=== PATIENT | female | born 1980 | race American Indian/Alaskan Native ===

== ENCOUNTER 2016-11-20 17:18 | Emergency (ER) | payer SELFPAY ==
[2016-11-20 18:06] VITALS: BP 122/76
[2016-11-20] MEDS ORDERED: BENADRYL PO ONE (20:03)
[2016-11-20] MEDS ORDERED: MORPHINE IM ONE (20:03)
[2016-11-20] MEDS ORDERED: NACL 0.9% IR ONE (20:05)
[2016-11-20] MEDS ORDERED: XYLOCAINE 1% 20 mL INFILTRATI ONE (20:22)
--- NOTE | 2016-11-21 06:56 | Emergency Department Report ---
Entered by ZANA KHAN, acting as scribe for ALFONSO CORDON PA. - General Chief complaint: Skin/Abscess/Foreign Body Stated complaint: BOILS/LEGS Time Seen by Provider: 11/20/16 19:42 Source: patient Mode of arrival: Ambulatory Limitations: No Limitations - History of Present Illness Initial comments: 36 y/o female with no significant PMHx presents to the ED c/o an abscess on left inner thigh that began 4 days ago. Patient states the abscess has gradually increased in size since onset. Rates pain a 10/10 in severity, which she describes as aching in quality. Aggravated with palpation and alleviated with nothing. Denies fever, chills, nausea, vomiting, and drainage. Notes Hx of similar abscess, which were subsequently drained. Denies taking any new or recent medication at home. NKDA. ELIZABETH complaint: abscess/boil (left inner thigh) Onset/Timin -: days(s) Tetanus Up to Date: unsure Location: LLE (left inner thigh) Severity: severe Severity scale (0 -10): 10 Quality: burning Consistency: constant Improves with: none Worsens with: palpation Context: other (Hx of abscesses) Associated symptoms: denies other symptoms Treatments Prior to Arrival: none - Related Data Previous Rx's Medication Instructions Recorded Last Taken Type Clindamycin [Clindamycin CAP] 300 mg PO Q8H #21 cap 12/01/14 Unknown Rx oxyCODONE /ACETAMINOPHEN [Percocet 1 tab PO Q6HR PRN #20 tablet 12/01/14 Unknown Rx 5/325 mg] Acetaminophen/Codeine [Tylenol #3] 1 tab PO Q6H PRN #15 tab 02/19/15 Unknown Rx HYDROcodone/APAP 5-325 [[place] 1 each PO Q6HR PRN #15 tablet 11/20/16 Unknown Rx 5-325 mg TAB] Ibuprofen [Motrin 600 MG tab] 600 mg PO Q8H PRN #50 tablet 11/20/16 Unknown Rx Sulfamethoxazole/Trimethoprim 1 each PO BID #14 tablet 11/20/16 Unknown Rx [Bactrim DS TAB] Allergies Allergy/AdvReac Type Severity Reaction Status Date / Time No Known Allergies Allergy Verified 11/29/14 18:48 Abscess Boil HPI - HPI Chief Complaint: Skin/Abscess/Foreign Body Stated Complaint: BOILS/LEGS Time Seen by Provider: 11/20/16 19:42 Duration: 4 Days Location: Lower Extremity (left inner thigh) Severity: Severe History: Yes Pain (to affected area on left inner thigh), No Fever, No Purulent Drainage, No Numbness, No Foreign Body, No Previous History, No Insect Bite Home Medications: Previous Rx's Medication Instructions Recorded Last Taken Type Clindamycin [Clindamycin CAP] 300 mg PO Q8H #21 cap 12/01/14 Unknown Rx oxyCODONE /ACETAMINOPHEN [Percocet 1 tab PO Q6HR PRN #20 tablet 12/01/14 Unknown Rx 5/325 mg] Acetaminophen/Codeine [Tylenol #3] 1 tab PO Q6H PRN #15 tab 02/19/15 Unknown Rx HYDROcodone/APAP 5-325 [[place] 1 each PO Q6HR PRN #15 tablet 11/20/16 Unknown Rx 5-325 mg TAB] Ibuprofen [Motrin 600 MG tab] 600 mg PO Q8H PRN #50 tablet 11/20/16 Unknown Rx Sulfamethoxazole/Trimethoprim 1 each PO BID #14 tablet 11/20/16 Unknown Rx [Bactrim DS TAB] Allergies/Adverse Reactions: Allergies Allergy/AdvReac Type Severity Reaction Status Date / Time No Known Allergies Allergy Verified 11/29/14 18:48 ED Review of Systems Comment: All other systems reviewed and negative Constitutional: denies: chills, fever Eyes: denies: eye pain, eye discharge, vision change ENT: denies: ear pain, throat pain Respiratory: denies: cough, shortness of breath, wheezing Cardiovascular: denies: chest pain, palpitations Endocrine: no symptoms reported Gastrointestinal: denies: abdominal pain, nausea, vomiting, diarrhea Musculoskeletal: denies: back pain, joint swelling, arthralgia Skin: other (abscess on left inner thigh). denies: rash, lesions Neurological: denies: headache, weakness, numbness, paresthesias Hematological/Lymphatic: denies: easy bleeding, easy bruising ED Past Medical Hx - Past Medical History Previous Medical History?: No Hx Congestive Heart Failure: No Hx Diabetes: No Hx Asthma: No Hx COPD: No Hx HIV: No - Surgical History Past Surgical History?: Yes Additional Surgical History: ectopic - Social History Smoking Status: Never Smoker - Medications Home Medications: Home Medications Medication Instructions Recorded Confirmed Last Taken Type Clindamycin [Clindamycin CAP] 300 mg PO Q8H #21 cap 12/01/14 Unknown Rx oxyCODONE /ACETAMINOPHEN [Percocet 1 tab PO Q6HR PRN #20 tablet 12/01/14 Unknown Rx 5/325 mg] Acetaminophen/Codeine [Tylenol #3] 1 tab PO Q6H PRN #15 tab 02/19/15 Unknown Rx HYDROcodone/APAP 5-325 [[place] 1 each PO Q6HR PRN #15 tablet 11/20/16 Unknown Rx 5-325 mg TAB] Ibuprofen [Motrin 600 MG tab] 600 mg PO Q8H PRN #50 tablet 11/20/16 Unknown Rx Sulfamethoxazole/Trimethoprim 1 each PO BID #14 tablet 11/20/16 Unknown Rx [Bactrim DS TAB] ED Physical Exam - General Limitations: No Limitations General appearance: alert, in no apparent distress - Head Head exam: Present: atraumatic, normocephalic - Eye Eye exam: Present: normal appearance, PERRL, EOMI Pupils: Present: normal accommodation - ENT ENT exam: Present: normal exam, mucous membranes moist, normal external ear exam - Neck Neck exam: Present: normal inspection, full ROM. Absent: tenderness, meningismus, lymphadenopathy - Respiratory Respiratory exam: Present: normal lung sounds bilaterally. Absent: respiratory distress, wheezes, rales, rhonchi, stridor, accessory muscle use, decreased breath sounds - Cardiovascular Cardiovascular Exam: Present: regular rate, normal rhythm, normal heart sounds. Absent: systolic murmur, diastolic murmur, rubs, gallop - GI/Abdominal GI/Abdominal exam: Present: soft, normal bowel sounds. Absent: distended - Extremities Exam Extremities exam: Present: normal inspection, full ROM - Back Exam Back exam: Present: normal inspection, full ROM - Neurological Exam Neurological exam: Present: alert, oriented X3, normal gait - Psychiatric Psychiatric exam: Present: normal affect, normal mood - Skin Skin exam: Present: warm, dry, intact, other (3-4 cm abscess that is TTP with surrounding erythema). Absent: rash ED Course Vital Signs 11/20/16 11/20/16 18:02 20:13 Temperature 98.5 F Pulse Rate 100 H Respiratory 16 18 Rate Blood Pressure 122/76 O2 Sat by Pulse 100 Oximetry - I & D Left Medial Thigh Type of Procedure: Complex Site: left inner thigh Blade Size: 11 I & D Procedure: betadine prep, sterile drapes applied, sterile dressing applied , gauze wick placed Progress: Patient positioned appropriately, 15cc lidocaine with/without epinephrine was used as a local anesthetic. #11 blade scalpal used for single incision. Additional local anesthetic injected into surrounding viable tissue prior to blunt dissection of loculated adhesions. Copius drainage of pus . Wound packed with iodoform gauze. Procedure tolerated without complications. Wound dressed with sterile 4x4 guaze and paper tape. Pt tolerated procedure well. ED Medical Decision Making - Medical Decision Making 36 y/o female presents with an abscess on left inner thigh for 4 days ED course: Patient received 1 dose of Benadryl and 1 dose of Morphine. Patient received an I&D for abscess on left inner thigh. Vital signs stable patient is in no acute or respiratory distress. Discussed with patient will prescribe pain medication and Bactrim. Discussed findings with patient about diagnoses. Discussed treatment in ED with patient. Discussed with patient to apply warm compresses to new and forming abscesses. Discussed patient to return in 3 days for packing removal and wound check Discussed with patient to follow up with PCP as referred, and to return to the ED if symptoms return or worsen. Patient states understanding and will follow instructions. Pt verbally states understanding and will comply to follow up. ED Disposition Clinical Impression: Abscess of thigh Disposition: TO HOME OR SELFCARE Is pt being admited?: No Does the pt Need Aspirin: No Condition: Stable Instructions: Abscess Incision and Drainage (ED), Acute Wound Care (ED), Abscess (ED) Prescriptions: HYDROcodone/APAP 5-325 [[place] 5-325 mg TAB] 1 each PO Q6HR PRN #15 tablet PRN Reason: Pain Ibuprofen [Motrin 600 MG tab] 600 mg PO Q8H PRN #50 tablet PRN Reason: Pain Sulfamethoxazole/Trimethoprim [Bactrim DS TAB] 1 each PO BID #14 tablet Referrals: PRIMARY CARE, [Primary Care Provider] - 3-5 Days [facility] [Outside] - 3-5 Days [facility] [Outside] - 3-5 Days [facility] [Outside] - 3-5 Days Forms: Accompanied Note, Work/School Release Form(ED) This documentation as recorded by the scribERIN fung JASMINE,accurately reflects the service I personally performed and the decisions made by ,ALFONSO CORDON PA.
== END 2016-11-20 22:08 | disposition home or self-care (01) ==
LOC: ED 17:18
DX: L02.416 Cutaneous abscess of left lower limb (principal)
CPT/HCPCS: 10061; 96372; 99282; J2270

== ENCOUNTER 2017-04-24 15:20 | Emergency (ER) | payer MEDICAID ==
[2017-04-24 17:41] VITALS: BP 111/73
--- NOTE | 2017-04-24 17:53 | Emergency Department Report ---
HPI - General Chief Complaint: Dental/Oral Time Seen by Provider: 04/24/17 17:52 - HPI HPI: This is a 36-year-old patient who reports that she slipped down some steps and fell and hit her mouth and she is missing a tooth at the front. She said this happened 2 days ago and she thinks she has an infection. Denies any fever or chills. Denies any bleeding. Denies any injury to tongue. Denies any sore throat or drooling. Denies any headache or any facial pain. Pain is localized to gum were she said she has loose tooth on the left at the front upper and missing tooth right upper. She states she took [id number] pain medication and it helped a little with her pain but he didn't take all her pain away. She says she has a dentist that she called and they gave her appointment for several weeks ahead. She says she has the tooth that came out stored at home and paper. Pain is 3 out of 10 and feels sore. ED Past Medical Hx - Past Medical History Previous Medical History?: No Hx Congestive Heart Failure: No Hx Diabetes: No Hx Asthma: No Hx COPD: No Hx HIV: No - Surgical History Past Surgical History?: Yes Additional Surgical History: ectopic - Family History Family history: hypertension - Social History Smoking Status: Current Every Day Smoker Substance Use Type: Alcohol - Medications Home Medications: Home Medications Medication Instructions Recorded Confirmed Last Taken Type Clindamycin [Clindamycin CAP] 300 mg PO Q8H #21 cap 12/01/14 Unknown Rx oxyCODONE /ACETAMINOPHEN [Percocet 1 tab PO Q6HR PRN #20 tablet 12/01/14 Unknown Rx 5/325 mg] Acetaminophen/Codeine [Tylenol #3] 1 tab PO Q6H PRN #15 tab 02/19/15 Unknown Rx HYDROcodone/APAP 5-325 [[place] 1 each PO Q6HR PRN #15 tablet 11/20/16 Unknown Rx 5-325 mg TAB] Sulfamethoxazole/Trimethoprim 1 each PO BID #14 tablet 11/20/16 Unknown Rx [Bactrim DS TAB] Ibuprofen [Motrin 600 MG tab] 600 mg PO Q8H PRN 7 Days #21 tablet 04/24/17 Unknown Rx Penicillin V Potassium 500 mg PO Q8H 10 Days #30 tablet 01/05/18 Unknown Rx ED Review of Systems ROS: Stated complaint: GUM INFECTED Other details as noted in HPI Comment: All other systems reviewed and negative Constitutional: no symptoms reported ENT: dental pain. denies: ear pain, throat pain, hearing loss, epistaxis, congestion Respiratory: no symptoms reported Cardiovascular: denies: chest pain, palpitations, edema, syncope Gastrointestinal: denies: abdominal pain, nausea, vomiting Musculoskeletal: denies: back pain, joint swelling, arthralgia, myalgia Skin: denies: rash Neurological: denies: headache, weakness, numbness, paresthesias, confusion, abnormal gait, vertigo Physical Exam - Physical Exam Vital Signs: Vital Signs 04/24/17 17:34 Temperature 98.9 F Pulse Rate 97 H Respiratory 16 Rate Blood Pressure 111/73 O2 Sat by Pulse 100 Oximetry General: This is a 36-year-old patient well-nourished well-developed in no acute distress. Physical Exam: Head: Normocephalic atraumatic. No abrasions, contusion or laceration. Normal examination Ears:BIateral TM pearly jiménez. Jair EAC with normal exam. No mastoid bone tenderness. Mouth: Moist, no pharyngeal erythema or exudate . No tonsillar erythema or exudate. UVULA midline and oral airways patent. No peritonsillar abscess. Tooth #8 is missing and #2 is shaky and unstable but still and gum area. Positive tenderness around tooth #8 and 9. Neck: Nontender to palpate, supple, normal range of motion. No adenopathy. No c- spine tenderness. Nose: Bilateral nasal mucosa normal .maxillary and frontal sinuses nontender to palpate. Eyes: Sclerae and conjunctiva without injection. Bilateral pupils equal and reactive to light. Bilateral lids are normal. Normal accommodation.BEOMI Lungs: Clear to auscultate bilaterally, no rhonchi wheezes or rales. Normal work of breathing and no chest wall tenderness Back: Normal inspection, no vertebral or sparse spinal tenderness. No bruising or laceration noted. Patient ambulates without any difficulties Extremities: No Clubbing, cyanosis or edema. +2 pulses all extremities. No neurovascular compromise. CV: S1, S2. Regular rate and rhythm negative murmur. Capillary refill is less than 3 seconds Skin: Clean dry and intact, no rashes or lesions Psych: Normal mood and behavior ED Course Vital Signs 04/24/17 17:34 Temperature 98.9 F Pulse Rate 97 H Respiratory 16 Rate Blood Pressure 111/73 O2 Sat by Pulse 100 Oximetry - Reevaluation(s) Reevaluation #1: 04/24/17 18:47 Patient given Motrin 800 mg ED Medical Decision Making - Medical Decision Making ED course: Patient is status post injury to tooth #8 and 9 with avulsion to tooth #8. She is here for treatment because she said she might have a infection at the site. Physical findings for medicine tooth #8 with loose tooth #9. She is unable to get in with her dentist in the next 2 weeks so I referred her to [facility] dental clinic and tell her to call on Thursday to schedule an appointment and sometimes that they will hear the same day. I told her to save the tooth that she has at home and stored in milk and put in a refrigerator just in case they can restore her tooth. I also discussed with her that she needs to prevent from loosing tooth. Patient given Motrin 800 mg by mouth in emergency room for toothache. Discharge home from emergency room and prescription for penicillin and Motrin and to follow-up at [facility]. Critical care attestation.: If time is entered above; I have spent that time in minutes in the direct care of this critically ill patient, excluding procedure time. ED Disposition Clinical Impression: Dentalgia Dental trauma Qualifiers: Encounter type: initial encounter Qualified Code(s): S09.93XA - Unspecified injury of face, initial encounter Avulsed tooth Qualifiers: Encounter type: initial encounter Qualified Code(s): S03.2XXA - Dislocation of tooth, initial encounter Disposition: - TO HOME OR SELFCARE Is pt being admited?: No Condition: Stable Instructions: Acute dental trauma (ED), Toothache (ED) Additional Instructions: Please follow-up with [facility]. Call on Thursday to schedule an appointment. You have loose tooth and please take care of tooth and call [facility] on Thursday so they can fix year tooth. Tooth injury happened 2 days ago and also you have the tooth that came out I am not sure if it can be replaced. You will have to take this due to the dentist for further evaluation and treatment. Please keep tooth that is out and now and still refrigerator. Take Motrin for pain and penicillin for prevention of infection. Please see referral to [facility] dental clinic and discharge instructions paperwork Prescriptions: Ibuprofen [Motrin 600 MG tab] 600 mg PO Q8H PRN 7 Days #21 tablet PRN Reason: Pain Penicillin V Potassium 500 mg PO Q8H 10 Days #30 tablet Referrals: [facility] [Outside] - 04/27/17 Forms: Work/School Release Form(ED)
[2017-04-24] MEDS ORDERED: MOTRIN PO ONE (18:32)
== END 2017-04-24 18:47 | disposition home or self-care (01) ==
LOC: ED 15:20
DX: S03.2XXA Dislocation of tooth, initial encounter (principal); F17.200 Nicotine dependence, unspecified, uncomplicated; W18.30XA Fall on same level, unspecified, initial encounter; Y93.89 Activity, other specified; Y92.89 Other specified places as the place of occurrence of the external cause; Y99.8 Other external cause status
CPT/HCPCS: 99282